=== PATIENT | female | born 1945 | race Caucasian/White ===

== ENCOUNTER → 2022-04-12 | Outpatient (REF) | payer MEDICARE | LOC: M LAB REF 12:48 | PROVIDERS: ATTEND Nurse Practitioner Family | DX: R30.0 Dysuria (principal) ==

== ENCOUNTER → 2022-04-23 | Outpatient (REF) | payer MEDICARE | LOC: M LAB REF 17:09 | PROVIDERS: ATTEND Nurse Practitioner Family | DX: B37.3 Candidiasis of vulva and vagina (principal) ==